=== PATIENT | female | born 1945 | race Caucasian/White ===

== ENCOUNTER → 2019-07-13 | Outpatient (CLI) | payer MEDICARE ==
[~2019-07-13] MED LIST: ACET325 PO; ALBU90OI6 INH; ALEN70 PO; AMLO10 PO; ASCO500 PO; AZIT250 PO; B/P MED; CALCAVITD PO; CALCIUM CITRATE PO; CHOL10002 PO; GABA100; HYDACE5 PO; IBUP400 PO; LEVSOD25 PO; MULTIVITAMIN; MULVITMIND PO; MULVITMINF PO; NAC600 MG PO; OXYB5 PO; POTA10T PO; POTCHL20ER PO; RISE35 PO; THERAMINE CAPS1 EACH PO; TRIA50 PO
[2019-07-17 15:08] LABS: HPV 16 Negative (Negative); HPV 18 Negative (Negative); HPV OTHER HR TYPES Negative (Negative)
== END | disposition home or self-care (01) ==
LOC: LAB 14:32 → LAB SHORT 14:32
PROVIDERS: Nurse Practitioner Women's Health
DX: Z12.72 Encounter for screening for malignant neoplasm of vagina (principal)
CPT/HCPCS: 87624; G0123

== ENCOUNTER 2019-10-25 20:40 | Observation (INO) | payer MEDICARE ==
[~2019-10-25] VITALS: Ht 165.1 cm; Wt 58.3 kg
[2019-10-25] MEDS ORDERED: AMLO10 PO (21:06)
[2019-10-25] MEDS ORDERED: OXYB5 PO (21:07)
[2019-10-25 21:31] LABS: BASOPHILS ABSOLUTE AUTO 0.01 K/mm3 (0.00-0.23); BASOPHILS PERCENT AUTO 0 % (0-2); EOSINOPHILS ABSOLUTE AUTO 0.03 K/mm3 (0.00-0.68); EOSINOPHILS PERCENT AUTO 0 % (0-6); Hematocrit 40.2 % (33.0-51.0); Hemoglobin 13.3 g/dL (11.5-16.0); IMMATURE GRAN ABSOLUTE AUTO 0.01 K/mm3 (0.00-0.10); IMMATURE GRAN PERCENT AUTO 0 % (0-1); LYMPHOCYTES ABSOLUTE AUTO 1.44 K/mm3 (0.84-5.20); LYMPHOCYTES PERCENT AUTO 20 % (21-46); MONOCYTES ABSOLUTE AUTO 0.55 K/mm3 (0.16-1.47); MONOCYTES PERCENT AUTO 8 % (4-13); Mean Corpuscular HGB 29.2 pg (26.0-34.0); Mean Corpuscular HGB Conc 33.1 g/dL (31.5-36.5); Mean Corpuscular Volume 88 fL (80-100); Mean Platelet Volume 9.3 fL (9.1-12.4); NEUTROPHILS ABSOLUTE AUTO 5.04 K/mm3 (1.96-9.15); NEUTROPHILS PERCENT AUTO 71 % (41-73); Platelet Count 267 K/mm3 (150-400); RDW Coefficient Variation 12.3 % (11.7-14.2); RDW Standard Deviation 40.1 fL (35.1-46.3); Red Blood Cell Count 4.55 M/mm3 (3.80-5.20); White Blood Cell Count 7.08 K/mm3 (4.00-11.30)
[2019-10-25 22:10] LABS: Alanine Aminotransfer (ALT/SGP 31 U/L (12-78); Albumin, Blood 3.9 g/dL (3.4-5.0); Albumin/Globulin Ratio 1.2 (0.8-1.8); Alk Phos 74 U/L (50-136); Anion Gap 8 mmol/L (6-16); Aspartate Aminotrans (AST/SGOT 18 U/L (12-37); Bilirubin, Total 0.4 mg/dL (0.1-1.0); Blood Urea Nitrogen 17 mg/dL (8-24); Bun/Creatinine Ratio 29.1 (12.0-20.0); CO2, Blood 29 mmol/L (21-32); Calcium, Blood 8.7 mg/dL (8.5-10.1); Chloride, Blood 106 mmol/L (98-108); Creatinine, Blood 0.59 mg/dL (0.40-1.00); Globulin, Blood 3.3 g/dL (2.2-4.0); Glomerular Filtration Rate >60 (60-); Glucose, Blood 118 mg/dL (70-99); Potassium, Blood 3.4 mmol/L (3.5-5.5); Sodium, Blood 143 mmol/L (136-145); Total Protein, Blood 7.2 g/dL (6.4-8.2); Troponin I <0.015 ng/mL (0.000-0.040)
[2019-10-25 22:47] LABS: Source, Urine Clean Catch
[2019-10-25 22:54] LABS: Bilirubin, Urine Neg (Neg); Blood, Urine Neg (Neg); Glucose Qualitative, Urine Neg (Neg); Ketones, Urine Neg (Neg); Leukocyte Esterase, Urine 3+ (Neg); Nitrite, Urine Neg (Neg); Protein, Urine Neg (Neg); Specific Gravity, Urine 1.015 (1.003-1.022); Urobilinogen, Urine NORM (Normal)
[2019-10-25 23:03] LABS: Appearance, Urine Hazy (Clear); Color, Urine Yellow (P-Yellow)
[2019-10-25 23:04] LABS: Amorphous Mod (0-Heavy); Bacteria Mod /hpf; Red Blood Cells, Urine Not Seen /hpf (0-2); Squamous Epithelial Cells Not Seen /hpf (Few)
--- NOTE | 2019-10-26 02:31 | NUR ---
PATIENT IS A NEW ADMIT FROM THE ED. AXO X3 AND ONE ASSIST. ONE ASSIST TRANSFER FROM GURNEY TO BED. DENIES PAIN, SOB, AND N/V. NO SYNCOPE EVENTS. VEGETARIAN DIET ORDERED. LS WEAKNESS WITH HX CVA 1996. PATIENT ORIENTED TO ROOM AND CALL LIGHT SYSTEM. DR OBRIEN IN ROOM FOR ASSESSMENT. COOPERATIVE WITH CARE. WILL CONTINUE TO MONITOR.
--- NOTE | 2019-10-26 04:26 | NUR ---
SHIFT SUMMARY PATIENT HAD NO ACUTE CHANGES. NO SYNCOPE EVENTS. AXOX 3 AND ONE ASSIST TO BR. PIV REMAINS INTACT. NS INFUSING AT 100 mL X ONE. CHEMICAL DEPENDENCY COUNSELOR REPORTS SINUS CYRUS 53. REGULAR DIET CHANGED TO VEGETARIAN. DR OBRIEN PRESENT AFTER ADMIT FOR ASSESSMENT. DENIES PAIN, SOB, AND N/V. RECEIVED FLU VACCINE PRIOR TO ADMIT. LEFT SIDE WEAKNESS WITH HX OF CVA 1996. TAKES MEDICATION WHOLE WITH WATER. CALL LIGHT IN REACH. BED IN LOWEST POSITION. WILL CONTINUE TO MONITOR UNTIL DAY SHIFT NURSE ASSUMES CARE.
[2019-10-26 05:15] LABS: Hematocrit 40.2 % (33.0-51.0); Hemoglobin 12.9 g/dL (11.5-16.0); Mean Corpuscular HGB Conc 32.1 g/dL (31.5-36.5); Mean Corpuscular Volume 87 fL (80-100); Mean Platelet Volume 9.4 fL (9.1-12.4); Platelet Count 262 K/mm3 (150-400); RDW Coefficient Variation 12.3 % (11.7-14.2); RDW Standard Deviation 39.7 fL (35.1-46.3)
[2019-10-26 05:40] LABS: Alanine Aminotransfer (ALT/SGP 26 U/L (12-78); Albumin, Blood 3.7 g/dL (3.4-5.0); Albumin/Globulin Ratio 1.1 (0.8-1.8); Alk Phos 76 U/L (50-136); Anion Gap 6 mmol/L (6-16); Aspartate Aminotrans (AST/SGOT 18 U/L (12-37); Bilirubin, Total 0.8 mg/dL (0.1-1.0); Blood Urea Nitrogen 14 mg/dL (8-24); Bun/Creatinine Ratio 26.1 (12.0-20.0); CO2, Blood 29 mmol/L (21-32); Calcium, Blood 8.6 mg/dL (8.5-10.1); Chloride, Blood 105 mmol/L (98-108); Creatinine, Blood 0.54 mg/dL (0.40-1.00); Globulin, Blood 3.3 g/dL (2.2-4.0); Glomerular Filtration Rate >60 (60-); Glucose, Blood 110 mg/dL (70-99); Potassium, Blood 3.4 mmol/L (3.5-5.5); Sodium, Blood 140 mmol/L (136-145)
[2019-10-26] MEDS ORDERED: ACET325 PO (08:43)
[2019-10-26] MEDS ORDERED: ONDA4ODT PO (08:44)
[2019-10-26] MEDS ORDERED: POTA10T PO (08:45)
[2019-10-26] MEDS ORDERED: CEFP200 PO (09:02)
--- NOTE | 2019-10-26 10:08 | NUR ---
PT TO DISCHARGE HOME WITH DAUGHTER. IV REMOVED, NO SS OF INFECTION NOTED. NURSE WENT OVER DISCHARGE PAPERS WITH PT AND DAUGHTER. PT WAS HEADED TO PCP FOR FOLLOW UP APPOINTMENT. PT EDUCATED REGARDING NEW ABX AND INSTRUCTED TO FINISH THEM. MEDS FAXED TO [facility] PER PATIENT REQUEST. PATIENT WHEELED DOWN BY AIDE AND ASSISTED INTO CAR.
== END 2019-10-26 10:06 | disposition home or self-care (01) ==
LOC: ER 20:40 → MEDS 20:41
PROVIDERS: Physician Assistant; ADMIT Internal Medicine
DX: R55 Syncope and collapse (principal); R42 Dizziness and giddiness; R73.03 Prediabetes; I10 Essential (primary) hypertension; E86.0 Dehydration; E87.6 Hypokalemia; G93.89 Other specified disorders of brain; E03.9 Hypothyroidism, unspecified; Z86.73 Personal history of transient ischemic attack (TIA), and cerebral infarction without residual deficits; Z79.899 Other long term (current) drug therapy; Z88.1 Allergy status to other antibiotic agents; Z88.2 Allergy status to sulfonamides; Z90.710 Acquired absence of both cervix and uterus
CPT/HCPCS: 36415; 70450; 71046; 80053; 81001; 84443; 84484; 85025; 85027; 87086; 93005; 93010; 96365; 99285-25; A9270-GY; G0378; J0696; J7030